=== PATIENT | male | born 1990 | race African-American/Black ===

== ENCOUNTER → 2024-07-17 | Emergency (ER) | payer OTHER ==
[~2024-07-17] VITALS: Ht 182.9 cm; Wt 90.7 kg
[~2024-07-17] MED LIST: CEFTRIAXONE SODIUM 1,000 MG VIAL IM ONE; CEPHALEXIN750 MG PO; KETOROLAC TROMETHAMINE 60 MG VIAL IM ONE; LIDOCAINE HCL 1%/EPINEPHRINE 20ML VIAL IJ ONE; PEPCID AC20 MG PO
== END | disposition home or self-care (01) ==
LOC: ER 11:35
DX: S01.511A Laceration without foreign body of lip, initial encounter (principal); Y04.0XXA Assault by unarmed brawl or fight, initial encounter; Y93.89 Activity, other specified; Y92.89 Other specified places as the place of occurrence of the external cause; Y99.8 Other external cause status